=== PATIENT | male | born 1990 | race Caucasian/White ===

== ENCOUNTER 2024-01-08 21:13 | Observation (INO) | payer OTHER, MEDICAID, SELFPAY ==
--- NOTE | ~2024-01-08 | US_ITS ---
EXAMINATION: US scrotum doppler DATE: 01/08/2024 22:00 INDICATION: Right-sided testicular pain and swelling TECHNIQUE: Testicular sonogram utilizing grayscale and Doppler COMPARISON: None. FINDINGS: The right testis measures 4.8 x 3.2 x 2.6 cm. The left testis measures 5.3 x 2.7 x 2.6 cm. Symmetric normal grayscale appearance to both testes. There is marked hyperemia of the right testis and epididy mis consistent with epididymal orchitis. There is a moderate-sized complex right hydrocele with locul ated components considering the level internal echoes and interspersed with multiple thin internal se ptations. The left epididymis is normal with normal vascular flow. There is a small anechoic simple a ppearing left hydrocele. There is no varicocele. Asymmetric right-sided scrotal edema. IMPRESSION: 1. Right epididymoorchitis with moderate-sized complex right hydrocele, potentially pyocele. Reviewed, dictated and finalized at location A. IMPRESSION: 1. Right epididymoorchitis with moderate-sized complex right hydrocele, potent ially pyocele.
[2024-01-08 21:58] VITALS: BP 155/77; PULSE 88; RESP 16; TEMP 36.8; O2SAT 100
[2024-01-09] VITALS (13 sets, daily range): BP systolic 120–138; BP diastolic 64–89; PULSE 75–90; RESP 14–20; TEMP 36.4–36.9; O2SAT 94–99; BMI 30.9
[2024-01-09 03:53] LABS: Basophils Percent Auto 0.3 % (0.2-1.2); Eosinophils Absolute Auto 0.2 K/mm3 (0-0.3); Eosinophils Percent Auto 1.8 % (0-4.4); Hematocrit 38.8 % (42.0-52.0); Immature Granulocyte Absolute 0.11 K/mm3 (0.00-0.031); Lymphocytes Absolute Auto 1.97 K/mm3 (0.9-3.2); Lymphocytes Percent Auto 18.6 % (18.3-44.2); Mean Corpuscular HGB Conc 33.5 g/dl (32-36); Mean Corpuscular Hemoglobin 30.5 pg (26-34); Mean Corpuscular Volume 91.1 fl (80-100); Mean Platelet Volume 9.7 fl (7.4-10.4); Monocytes Absolute Auto 0.9 K/mm3 (0.1-0.6); Monocytes Percent Auto 8.6 % (2.6-8.5); Neutrophils Absolute Auto 7.4 K/mm3 (1.3-6.7); Neutrophils Percent Auto 69.7 % (45.5-73.1); Platelet Count Result 234 k/mm3 (150-375); Red Blood Count 4.26 M/mm3 (4.6-6.20); Red Cell Distribution Width 11.9 % (11.5-14.5); White Blood Count 10.6 K/mm3 (4.5-10.0)
[2024-01-09 04:11] LABS: Alanine Aminotransferase 11 U/L (6-50); Albumin Level 4.4 g/dL (3.5-5.1); Alkaline Phosphatase 47 U/L (38-126); Anion Gap 10 mmol/L (4-12); Aspartate Amino Transferase 16 U/L (17-59); Bilirubin,Total 0.5 mg/dL (0.2-1.3); Blood Urea Nitrogen 15 mg/dL (9-20); Calcium 9.2 mg/dL (8.4-10.2); Carbon Dioxide 27 mmol/L (22-30); Chloride 103 mmol/L (98-107); Estimated CRCL calculation 121 ml/min; Estimated Glomerular Filt Rate > 60; Glucose 97 mg/dL (65-110); Potassium 3.5 mmol/L (3.4-5.0); Sodium 140 mmol/L (137-145)
--- NOTE | 2024-01-09 04:31 | ED.GENADULT ---
HPI - General Adult General Chief complaint: Urogenital-Male Stated complaint: testicular pain Time Seen by Provider: 01/09/24 03:16 History of Present Illness HPI narrative: Patient 33-year-old gentleman who presents emergency department with chief complaint of right testicle pain. Patient reports that he was seen at [facility] on Thursday diagnosed with epididymitis given a shot of Rocephin and sent home on doxycycline patient has been in senior care taking his antibiotics and reports that the testicle is become more swollen and more tender the was brought into the emergency department today to evaluate for torsion and additional treatment. Related Data Allergies Allergy/AdvReac Type Severity Reaction Status Date / Time No Known Allergies Allergy Verified 01/09/24 03:51 Review of Systems Review of Systems: A 10 system review of systems was completed on the patient and is negative except for what is stated in the HPI. Nursing and ancillary documentation was reviewed. Exam Narrative: GENERAL: Well-appearing, well-nourished, and in no acute distress. HEAD: Normocephalic, atraumatic. EYES: PERRLA and EOMI. ENT: Nares clear, no rhinorrhea or epistaxis. Mucous membranes moist. NECK: Supple. CHEST: Clear to auscultation. No respiratory distress. HEART: Regular rate and rhythm. No murmur heard. Normal peripheral pulses. ABDOMEN: Soft, nontender, nondistended, normal active bowel sounds. : Right testicle is significantly swollen about the size of a baseball. EXTREMITIES: Normal range of motion. No edema. SKIN: Warm, dry, no rash. NEURO: No focal deficits. Alert and oriented x3. PSYCH: Normal mood and affect. Course Vital Signs Vital signs: Vital Signs Temperature 36.8 C 01/08/24 21:58 Pulse Rate 88 01/08/24 21:58 Respiratory Rate 16 01/08/24 21:58 Blood Pressure 155/77 H 01/08/24 21:58 Pulse Oximetry 100 01/08/24 21:58 Oxygen Delivery Room Air 01/08/24 21:58 Temperature 36.9 C 01/09/24 03:52 Pulse Rate 79 01/09/24 03:52 Respiratory Rate 17 01/09/24 03:52 Blood Pressure 136/85 01/09/24 03:52 Pulse Oximetry 97 01/09/24 03:52 Oxygen Delivery Room Air 01/08/24 21:58 Medical Decision Making [facility] Narrative Medical decision making narrative: differential diagnosis includes torsion, epididymal orchitis, hydrocele, scrotal abscess, Bolivar's gangrene the patient did not have signs of crepitance no necrotic tissue present scrotal ultrasound showed The right testis measures 4.8 x 3.2 x 2.6 cm. The left testis measures 5.3 x 2.7 x 2.6 cm. Symmetric normal grayscale appearance to both testes. There is marked hyperemia of the right testis and epididymis consistent with epididymal orchitis. There is a moderate-sized complex right hydrocele with loculated components considering the level internal echoes and interspersed with multiple thin internal septations. The left epididymis is normal with normal vascular flow. There is a small anechoic simple appearing left hydrocele. There is no varicocele. Asymmetric right-sided scrotal edema. IMPRESSION: 1. Right epididymoorchitis with moderate-sized complex right hydrocele, potentially pyocele. CBC showed white count of 10.6 electrolytes are within normal limits urinalysis is currently pending the case was discussed with Urology the patient was given Rocephin was started on Levaquin patient will be admitted for further care Vital Signs Vital Signs: Vital Signs Temperature 36.8 C 01/08/24 21:58 Pulse Rate 88 01/08/24 21:58 Respiratory Rate 16 01/08/24 21:58 Blood Pressure 155/77 H 01/08/24 21:58 Pulse Oximetry 100 01/08/24 21:58 Oxygen Delivery Room Air 01/08/24 21:58 Temperature 36.9 C 01/09/24 03:52 Pulse Rate 79 01/09/24 03:52 Respiratory Rate 17 01/09/24 03:52 Blood Pressure 136/85 01/09/24 03:52 Pulse Oximetry 97 01/09/24 03:52 Oxygen Delivery Room Air 01/08/24 21:
[2024-01-09] MEDS: levoFLOXacin 750 MG/D5W 150 ML 750 MG/150 ML BAG 100 MG IVPB (04:35)
[2024-01-09] MEDS: HYDROcodone/acetaminophen (*CRX) 5-325 MG TABLET 1 TAB PO ×2 (05:04→10:45)
[2024-01-09] MEDS: ACETAMINOPHEN 325 MG TABLET 650 MG PO (06:31)
--- NOTE | 2024-01-09 06:33 | ADMGEN ---
This patient, Bethel Plzaa, was admitted to Medical Room 253-01. Patient/family oriented to hospital policies and general routines including ID bracelet, bed and alarms, visiting hours, pain management, procedures, bathroom and other care routines, personal items, smoking policy, room service/diet, and visiting hours. Information on how to activate the Rapid Response Team has been discussed. Patient/Family are encouraged to report perceived risks to care and to ask questions if they do not understand what they are told or what they should do.
--- NOTE | 2024-01-09 08:36 | WPDURCON ---
Assessment and Plan Assessment and plan (1) Acute epididymo-orchitis: Code(s): N45.3 - Epididymo-orchitis Status: Acute Assessment and Plan: This appears to be a fairly typical presentation for epididymitis. I would anticipate IV antibiotics for 36-48 hours followed by outpatient oral therapy for 10-14 days. Discharge once we see improvement in leukocytosis. I have explained to patient that typically the will take 3-4 weeks for the scrotal swelling and induration to completely resolved. Urology Consult Note HPI Date Seen: 01/09/24 Requesting Physician: Shanthi Degroot DO Primary Care Provider: UNKNOWN,DOCTOR Consult Narrative Narrative: Bethel Plaza is a 33 year old male without prior significant urological history who is admitted following a 5 day course of progressive right hemiscrotal swelling, induration and tenderness. This occurred without identifiable precipitating injury or strain. He was seen in the emergency department in [place] where he was diagnosed with epididymitis. There was no significant improvement prompting re-evaluation in the ED at [facility] with subsequent admission. Other than scrotal discomfort and swelling he denies Uribel voiding, fevers or other constitutional symptoms Review of Systems Review of Systems: All systems reviewed & are unremarkable except as noted in HPI and below PMFSH Social History Social History Smoking status: Current every day smoker Tobacco type: cigarettes Alcohol intake: never Substance use: never Do You Feel Safe in your Home?: Yes Lack of Transportation: No Lack of Food: Never True Current Housing: I Have Housing Concerned About Future Housing: No Difficulty Paying Gas/Electric Bills: No Difficulty Paying for Meds: No Currently Unemployed: No Education: High School Diploma/GED Difficulty w/ Childcare or Family Care: No Spiritual care concerns: No Meds Home Medications and Allergies Home Medications Medication Instructions Recorded Confirmed Type acetaminophen 500 mg tablet 500 mg PO BID 01/09/24 01/09/24 History doxycycline hyclate 100 mg capsule 100 mg PO BID 01/09/24 01/09/24 History Allergies Allergy/AdvReac Type Severity Reaction Status Date / Time No Known Allergies Allergy Verified 01/09/24 03:51 Vital Signs Vital Signs - 24 hr 01/08/24 21:58 01/09/24 03:52 01/09/24 03:52 Temperature 98.3 F 98.4 F Pulse Rate 88 79 Respiratory Rate 16 17 Blood Pressure 155/77 H 136/85 136/85 Pulse Oximetry 100 97 98 Oxygen Delivery Room Air 01/09/24 03:53 01/09/24 04:00 01/09/24 04:02 Temperature Pulse Rate Respiratory Rate Blood Pressure 135/87 Pulse Oximetry 98 97 96 Oxygen Delivery 01/09/24 04:15 01/09/24 04:17 01/09/24 04:30 Temperature Pulse Rate Respiratory Rate Blood Pressure 128/84 Pulse Oximetry 98 97 99 Oxygen Delivery 01/09/24 04:31 01/09/24 05:23 01/09/24 06:01 Temperature Pulse Rate 76 79 Respiratory Rate 17 20 Blood Pressure 130/82 138/89 Pulse Oximetry 98 99 97 Oxygen Delivery 01/09/24 06:09 Temperature 98.0 F Pulse Rate 90 Respiratory Rate 18 Blood Pressure 134/74 Pulse Oximetry 94 Oxygen Delivery Exam Const: General: no acute distress Resp: Effort & Inspection: normal respiratory effort GI: Inspection: non-distended GI Palp: No abdominal tenderness and No Guarding due to palpation present (GI) Auscultation: normal bowel sounds : Scrotum: other (moderate induration right hemiscrotum - testicle not palpable) Results Labs 01/09/24 03:47 01/09/24 03:47 Labs: Short CBC 01/09/24 Range/Units 03:47 WBC 10.6 H (4.5-10.0) K/mm3 Hgb 13.0 L (14.0-18.0) g/dL Hct 38.8 L (42.0-52.0) % Plt Count 234 (150-375) k/mm3 BMP 01/09/24 03:47 Sodium 140 Potassium 3.5
[2024-01-09 08:42] LABS: Add Urine Microscopic? YES; Appearance Urine Turbid (Clear); Bacteria Urine None Seen /hpf; Bilirubin Urine Negative (Negative); Blood Urine Negative (Negative); Color Urine Yellow (Yellow); Glucose Urine UA Negative (Negative); Ketones Urine Trace mg/dL (Negative); Leukocyte Esterase Ur Negative LEU/UL (Negative); Mucus Urine Present /lpf; Nitrate Urine Negative (Negative); Protein Urine Trace mg/dL (Negative); RBC Urine 0-2 /hpf (0-2); Specific Grav Ur 1.029 (1.001-1.035); Squamous Epithelial Cell Urine Occasional /hpf (Few); Urobilinogen Urine 0.2 mg/dL (<2.0); pH Urine 5.5 (5.0-9.0)
[2024-01-09 11:16] LABS: Chlamydia trachomatis NOT DETECTED (NOT DETECTE); Neisseria gonorrhoeae PCR NOT DETECTED (NOT DETECTE)
--- NOTE | 2024-01-09 17:36 | PM.IMHP ---
H&P: HPI History of Present Illness Date/Time: 01/09/24 17:36 Chief Complaint: Right scrotal pain Narrative: Patient was brought in to the ER from [facility] with reports of right scrotal pain within the last4-5 days prior to his presentation. Pt reports that he went to OSH 3 days ago and was given a shot of Ceftriaxone and discharged on doxycycline. Pt has been taking the antibiotics with no improvement in symptoms so he decided to come to this ER. He reports a similar episode some months ago that resolved with IV and PO antibiotics. Pt denies fevers, chills, hematuria, abdominal pain, nausea, vomiting, SOB. Review of Systems Review of Systems: All systems reviewed & are unremarkable except as noted in HPI and below PMFSH Social History Social History Smoking status: Current every day smoker Tobacco type: cigarettes Alcohol intake: never Substance use: never Do You Feel Safe in your Home?: Yes Lack of Transportation: No Lack of Food: Never True Current Housing: I Have Housing Concerned About Future Housing: No Difficulty Paying Gas/Electric Bills: No Difficulty Paying for Meds: No Currently Unemployed: No Education: High School Diploma/GED Difficulty w/ Childcare or Family Care: No Spiritual care concerns: No Meds Home Medications and Allergies Home Medications Medication Instructions Recorded Confirmed Type acetaminophen 500 mg tablet 500 mg PO BID 01/09/24 01/09/24 History doxycycline hyclate 100 mg capsule 100 mg PO BID 01/09/24 01/09/24 History Allergies Allergy/AdvReac Type Severity Reaction Status Date / Time No Known Allergies Allergy Verified 01/09/24 03:51 Vital Signs Vital Signs - 24 hr 01/08/24 21:58 01/09/24 03:52 01/09/24 03:52 Temperature 98.3 F 98.4 F Pulse Rate 88 79 Respiratory Rate 16 17 Blood Pressure 155/77 H 136/85 136/85 Pulse Oximetry 100 97 98 Oxygen Delivery Room Air 01/09/24 03:53 01/09/24 04:00 01/09/24 04:02 Temperature Pulse Rate Respiratory Rate Blood Pressure 135/87 Pulse Oximetry 98 97 96 Oxygen Delivery 01/09/24 04:15 01/09/24 04:17 01/09/24 04:30 Temperature Pulse Rate Respiratory Rate Blood Pressure 128/84 Pulse Oximetry 98 97 99 Oxygen Delivery 01/09/24 04:31 01/09/24 05:23 01/09/24 06:01 Temperature Pulse Rate 76 79 Respiratory Rate 17 20 Blood Pressure 130/82 138/89 Pulse Oximetry 98 99 97 Oxygen Delivery 01/09/24 06:09 01/09/24 08:00 01/09/24 14:00 Temperature 98.0 F 97.6 F Pulse Rate 90 75 Respiratory Rate 18 16 Blood Pressure 134/74 120/74 Pulse Oximetry 94 98 Oxygen Delivery Room Air Exam Const: General: comfortable and no acute distress HENMT: Face/Nose/Sinus: Normal nares present Mouth: Yes moist mucous membranes Other: Atraumatic Eyes: General: appearance normal, both eyes and all related structures Sclera: sclerae normal Pupils: Equal, round and reactive pupils present EOM: EOMs intact bilaterally Neck: Neck: supple Resp: Effort & Inspection: normal respiratory effort Auscultation: clear to auscultation bilaterally Cardio: Rate: regular rate Rhythm: regular rhythm Other: S1S2 GI: GI Palp: Yes Soft to palpation Auscultation: normal bowel sounds Other: Non-tender : Male General Exam: Yes erythema and Yes tenderness Other: Right scrotum Skin: General skin exam: normal color and erythema Wounds: no wounds Other: Right scrotal redness Neuro: Speech: normal speech Motor exam (neuro): 5/5 motor strength present throughout Sensory Exam: normal sensation Other: Calm and co-operative Extrem: General: normal to inspection Psych: Mental Status: mental status grossly normal Affect: normal affect Other: Calm and co-operative H&P: Results Labs Labs: Short CBC 01/09/24 Range/Units 03:47 WBC 10.6 H (4.5-1
[2024-01-10] MEDS: levoFLOXacin 750 MG/D5W 150 ML 750 MG/150 ML BAG 100 MG IVPB (05:30)
[2024-01-10 05:41] VITALS: BP 121/70; PULSE 74; RESP 18; TEMP 36.6; O2SAT 97
--- NOTE | 2024-01-10 08:29 | WPDUROPN2 ---
Progress Note: A&P Assessment and Plan (1) Acute epididymo-orchitis: Code(s): N45.3 - Epididymo-orchitis Status: Acute Assessment and Plan: Agree with levaquin, as pain improves can transition to oral antibiotics and prepare for discharge. NSAIDS and scrotal support/elevation for symptom control. Subjective Subjective Date/Time Seen: 01/10/24 08:29 Interval history: NAEO, patient reports persistent discomfort and swelling. No fevers. Exam Narrative: NAD, A&Ox3, resting in bed, appears comfortable. RRR eWOB S/NT/ND Scrotum with minor erythema, right testicle enlarged and tender to palpation. Left testicle non-tender. Neuro nonfocal Appropriate affect and mood. Objective Data Vital Signs Vital Signs: Vital Signs - 24 hr 01/09/24 14:00 01/09/24 21:12 01/10/24 05:41 Temperature 97.6 F 97.8 F 97.8 F Pulse Rate 75 76 74 Respiratory Rate 16 14 18 Blood Pressure 120/74 120/64 121/70 Pulse Oximetry 98 98 97 Intake/Output Intake/Output: Intake & Output 01/07/24 01/08/24 01/09/24 01/10/24 23:59 23:59 23:59 23:59 Intake Total 1410 450 Balance 1410 450 Meds/Results Medications: Active Medications Generic Name Dose Route Start Last Admin Trade Name Freq PRN Reason Stop Dose Admin Acetaminophen 650 mg 01/09/24 04:57 01/09/24 06:31 Acetaminophen 325 Mg Tablet PO 650 mg Q4H PRN Administration Mild Pain (1-3) or Fever Hydrocodone Bitart/Acetaminophen 1 tab 01/09/24 04:57 01/10/24 00:00 Hydrocodone/Acetaminophen (*Crx) 5-325 Mg Tablet PO 1 tab Q4H PRN Administration Pain Rated 4-6 Enoxaparin Sodium 40 mg 01/10/24 09:00 Enoxaparin 40 Mg/0.4 Ml Syringe SUB-Q DAILY LEXI Levofloxacin/Dextrose 750 mg in 150 mls @ 100 mls/hr 01/10/24 05:00 01/10/24 07:00 Levaquin 750 Mg/D5w 150 Ml IVPB Infused Q24H LEXI Infusion Radiology Results: ITS Impressions Scrotum Ultrasound 01/08/24 22:02 IMPRESSION: 1. Right epididymoorchitis with moderate-sized complex right hydrocele, potentially pyocele. Labs Labs: Laboratory Results - last 24 hr 01/09/24 08:12 Urine Color Yellow Urine Appearance Turbid H Urine pH 5.5 Ur Specific [place] 1.029 Urine Protein Trace Urine Glucose (UA) Negative Urine Ketones Trace H Ur Blood (Man) Negative Urine Nitrate Negative Urine Bilirubin Negative Urine Urobilinogen 0.2 Leukocyte Esterase Rfl Negative Urine RBC 0-2 Urine WBC 6-10 H Ur Squamous Epith Cells Occasional Urine Bacteria None seen Urine Casts 11-20 Urine Mucus Present C. trachomatis (PCR) Not detected N. gonorrhoeae (PCR) Not detected
[2024-01-10 09:00] LABS: Basophils Percent Auto 0.5 % (0.2-1.2); Eosinophils Absolute Auto 0.2 K/mm3 (0-0.3); Eosinophils Percent Auto 2.3 % (0-4.4); Hematocrit 40.4 % (42.0-52.0); Hemoglobin 13.3 g/dL (14.0-18.0); Immature Granulocyte Absolute 0.14 K/mm3 (0.00-0.031); Immature Granulocyte Percent A 1.6 % (0-0.5); Lymphocytes Absolute Auto 1.78 K/mm3 (0.9-3.2); Lymphocytes Percent Auto 20.7 % (18.3-44.2); Mean Corpuscular HGB Conc 32.9 g/dl (32-36); Mean Corpuscular Hemoglobin 30.4 pg (26-34); Mean Corpuscular Volume 92.2 fl (80-100); Mean Platelet Volume 9.4 fl (7.4-10.4); Monocytes Absolute Auto 0.5 K/mm3 (0.1-0.6); Monocytes Percent Auto 6.1 % (2.6-8.5); Neutrophils Absolute Auto 5.9 K/mm3 (1.3-6.7); Neutrophils Percent Auto 68.8 % (45.5-73.1); Platelet Count Result 250 k/mm3 (150-375); Red Blood Count 4.38 M/mm3 (4.6-6.20); Red Cell Distribution Width 11.6 % (11.5-14.5); White Blood Count 8.6 K/mm3 (4.5-10.0)
[2024-01-10] MEDS: ENOXAPARIN 40 MG/0.4 ML SYRINGE SUB-Q (09:47)
--- NOTE | 2024-01-10 11:33 | PM.IMPN ---
Progress Note: A&P Assessment and Plan (1) Acute epididymo-orchitis: Code(s): N45.3 - Epididymo-orchitis Status: Acute Assessment and Plan: - Continue IV Levaquin as we await cultures. - Gonorrhea/Chlamydia PCR negative. - Mumps pending. - Pain meds PRN. - Elevate testictles PRN for comfort. - Consider PO abx in AM if cultures result. (2) Leukocytosis: Code(s): D72.829 - Elevated white blood cell count, unspecified Status: Acute Assessment and Plan: - Likely related to infection. - Resolved. (3) Tobacco use disorder: Code(s): F17.200 - Nicotine dependence, unspecified, uncomplicated Status: Chronic Assessment and Plan: - Encouraged with cessation. - Declines nicotine patch. Plan Code: Full-Code. DVT PPx: Lovenox. Time Spent With Patient Time with patient: 15 - 25 minutes Subjective Date/time seen: 01/10/24 11:33 Interval history: Patient presented to the ER with Right scrotal pain. Denied any trauma and reported previous episode that was treated with IV and PO abx. Pt currently calm on bedrest and reports improvement in pain but states had some whitish discharge when urinating early in AM. Denies headache, dizziness, trouble swallowing, chest pain, SOB, hematuria, dysuria, joint or muscle aches. Review of Systems Review of Systems: All systems reviewed & are unremarkable except as noted in HPI and below Exam Const: General: comfortable and no acute distress HENMT: Face/Nose/Sinus: Normal nares present Mouth: Yes moist mucous membranes Other: Atraumatic Eyes: General: appearance normal, both eyes and all related structures Sclera: sclerae normal Pupils: Equal, round and reactive pupils present EOM: EOMs intact bilaterally Neck: Neck: supple Resp: Effort & Inspection: normal respiratory effort Auscultation: clear to auscultation bilaterally Cardio: Rate: regular rate Rhythm: regular rhythm Other: S1S2 GI: Auscultation: normal bowel sounds Other: Non-tender : Male General Exam: Yes erythema and Yes tenderness Other: Right scrotum Skin: General skin exam: normal color and erythema Wounds: no wounds Other: Right scrotal redness Neuro: Cranial nerves: Yes Equal, round and reactive pupils present Speech: normal speech Motor exam (neuro): 5/5 motor strength present throughout Sensory Exam: normal sensation Other: Calm and co-operative Extrem: General: normal to inspection Psych: Mental Status: mental status grossly normal Affect: normal affect Other: Calm and co-operative Objective Data Vital Signs Vital Signs: Vital Signs - 24 hr 01/09/24 14:00 01/09/24 21:12 01/10/24 05:41 Temperature 97.6 F 97.8 F 97.8 F Pulse Rate 75 76 74 Respiratory Rate 16 14 18 Blood Pressure 120/74 120/64 121/70 Pulse Oximetry 98 98 97 Intake/Output Intake/Output: Intake & Output 01/07/24 01/08/24 01/09/24 01/10/24 23:59 23:59 23:59 23:59 Intake Total 1410 810 Balance 1410 810 Meds/Results Medications: Active Medications Generic Name Dose Route Start Last Admin Trade Name Freq PRN Reason Stop Dose Admin Acetaminophen 650 mg 01/09/24 04:57 01/09/24 06:31 Acetaminophen 325 Mg Tablet PO 650 mg Q4H PRN Administration Mild Pain (1-3) or Fever Hydrocodone Bitart/Acetaminophen 1 tab 01/09/24 04:57 01/10/24 00:00 Hydrocodone/Acetaminophen (*Crx) 5-325 Mg Tablet PO 1 tab Q4H PRN Administration Pain Rated 4-6 Enoxaparin Sodium 40 mg 01/10/24 09:00 01/10/24 09:47 Enoxaparin 40 Mg/0.4 Ml Syringe SUB-Q 40 mg DAILY LEXI Administration Levofloxacin/Dextrose 750 mg in 150 mls @ 100 mls/hr 01/10/24 05:00 01/10/24 07:00 Levaquin 750 Mg/D5w 150 Ml IVPB Infused Q24H LEXI Infusion Radiology Results: ITS Impressions Scrotum Ultrasound 01/08/24 22:02 IMPRESSION: 1. Right epididymoorchitis with moderate-sized complex right hydroce
[2024-01-10 11:58] VITALS: O2SAT 100
[2024-01-10 13:56] VITALS: BP 124/62; PULSE 82; RESP 18; TEMP 37.7; O2SAT 97
[2024-01-10 14:37] VITALS: TEMP 37.1
[2024-01-10] MEDS: HYDROcodone/acetaminophen (*CRX) 5-325 MG TABLET 1 TAB PO ×2 (18:19)
[2024-01-10 20:44] VITALS: BP 121/63; PULSE 73; RESP 16; TEMP 36.5; O2SAT 97
[2024-01-11] MEDS: HYDROcodone/acetaminophen (*CRX) 5-325 MG TABLET 1 TAB PO (00:47)
[2024-01-11] MEDS: levoFLOXacin 750 MG/D5W 150 ML 750 MG/150 ML BAG 100 MG IVPB (05:00)
[2024-01-11 06:00] VITALS: BP 122/68; PULSE 72; RESP 18; TEMP 36.6; O2SAT 99
--- NOTE | 2024-01-11 09:09 | WPDUROPN2 ---
Progress Note: A&P Assessment and Plan (1) Acute epididymo-orchitis: Code(s): N45.3 - Epididymo-orchitis Status: Acute Assessment and Plan: Greatly improved. WBC normalized. Remains afebrile. Transition to p.o. Levaquin to complete a 14 day course. Okay for discharge from urologic standpoint at this time. Continue supportive care, scrotal support/elevation for symptom relief Subjective Subjective Date/Time Seen: 01/11/24 09:09 Interval history: Feeling improved today. Pain is well controlled. Reports swelling and redness have improved. Denies fever, chills, nausea, vomiting. Review of Systems Review of Systems: All systems reviewed & are unremarkable except as noted in HPI and below Exam Narrative: General: Awake, alert, comfortable, no acute distress HEENT: Normocephalic, atraumatic, sclerae anicteric Respiratory: Normal respiratory effort, no accessory muscle use Abdomen: Nondistended, soft, nontender : Right testicle is enlarged, minimally tender to palpation, very mild erythema of scrotum Skin: Normal coloration, warm and dry Neurologic: No focal neuro deficits noted Psychiatric: Appropriate mood and affect, judgment and insight intact Objective Data Vital Signs Vital Signs: Vital Signs - 24 hr 01/10/24 11:58 01/10/24 13:56 01/10/24 14:37 Temperature 99.8 F H 98.7 F Pulse Rate 82 Respiratory Rate 18 Blood Pressure 124/62 Pulse Oximetry 100 97 Oxygen Delivery Room Air 01/10/24 20:00 01/10/24 20:44 01/11/24 06:00 Temperature 97.7 F 97.8 F Pulse Rate 73 72 Respiratory Rate 16 18 Blood Pressure 121/63 122/68 Pulse Oximetry 97 99 Oxygen Delivery Room Air Intake/Output Intake/Output: Intake & Output 01/08/24 01/09/24 01/10/24 01/11/24 23:59 23:59 23:59 23:59 Intake Total 1410 1290 550 Balance 1410 1290 550 Meds/Results Medications: Active Medications Generic Name Dose Route Start Last Admin Trade Name Freq PRN Reason Stop Dose Admin Acetaminophen 650 mg 01/09/24 04:57 01/09/24 06:31 Acetaminophen 325 Mg Tablet PO 650 mg Q4H PRN Administration Mild Pain (1-3) or Fever Hydrocodone Bitart/Acetaminophen 1 tab 01/09/24 04:57 01/11/24 00:47 Hydrocodone/Acetaminophen (*Crx) 5-325 Mg Tablet PO 1 tab Q4H PRN Administration Pain Rated 4-6 Enoxaparin Sodium 40 mg 01/10/24 09:00 01/10/24 09:47 Enoxaparin 40 Mg/0.4 Ml Syringe SUB-Q 40 mg DAILY LEXI Administration Levofloxacin/Dextrose 750 mg in 150 mls @ 100 mls/hr 01/10/24 05:00 01/11/24 06:30 Levaquin 750 Mg/D5w 150 Ml IVPB Infused Q24H LEXI Infusion Radiology Results: ITS Impressions Scrotum Ultrasound 01/08/24 22:02 IMPRESSION: 1. Right epididymoorchitis with moderate-sized complex right hydrocele, potentially pyocele. Labs Labs: Laboratory Results - last 24 hr 01/10/24 08:46 WBC 8.6 RBC 4.38 L Hgb 13.3 L Hct 40.4 L MCV 92.2 MCH 30.4 MCHC 32.9 RDW 11.6 Plt Count 250 MPV 9.4 Immature Gran % (Auto) 1.6 H Neut % (Auto) 68.8 Lymph % (Auto) 20.7 [place] % (Auto) 6.1 Eos % (Auto) 2.3 Baso % (Auto) 0.5 Lymph # (Auto) 1.78 [place] # (Auto) 0.5 Eos # (Auto) 0.2 Baso # (Auto) 0.0 Abs Immat Gran (auto) 0.14 H Absolute Neuts (auto) 5.9 Absolute Nucleated RBC 0.000 Nucleated RBC % 0.0
[2024-01-11] MEDS: ENOXAPARIN 40 MG/0.4 ML SYRINGE SUB-Q (09:16)
--- NOTE | 2024-01-11 10:29 | PM.DS ---
DS: Admitting Diagnosis Discharge Date 01/14/2004 Admitting Diagnosis Scrotal redness, pain and swelling. DS: Discharge Diagnosis Discharge Diagnosis (1) Acute epididymo-orchitis: Code(s): N45.3 - Epididymo-orchitis Status: Acute Assessment and Plan: - Well improving. Remains afebrile. - Transitioned to p.o. Levaquin to complete a 14 day course. - Cleared for discharge per urologist. - Continue supportive care, scrotal support/elevation for symptom relief. - Pain meds PRN. (2) Leukocytosis: Code(s): D72.829 - Elevated white blood cell count, unspecified Status: Acute Assessment and Plan: - Related to infection. - Resolved. (3) Tobacco use disorder: Code(s): F17.200 - Nicotine dependence, unspecified, uncomplicated Status: Chronic Assessment and Plan: - 7 minutes spent on cessation counseling. - Declined nicotine patch. Plan Patient stable for discharge with symptoms improving and no acute symptoms noted. Scrotal redness and swelling improving. Encouraged with scrotal support/elevation for symptom relief. DS: Summary Hospital Course Reason for hospitalization: Epididymo-Orchitis. Hospital Course: Patient presented to the emergency room reporting that he was seen at [facility] a couple of days prior to this presentation and was diagnosed with epididymitis. He was given a shot of Rocephin and sent home on PO doxycycline which he has been taking his but the testicle was becoming more swollen and more tender. Patient was brought to the emergency department for evaluation of possible torsion and further treatment. Patient has an US scrotum done that showed: Right epididymoorchitis with moderate-sized complex right hydrocele, potentially pyocele. Patient has been treated by IV Levaquin that has been converted to PO before discharge for a 14 day course per urologist, who followed up with the patient during his admission. Preliminary blood and urine cultures are all negative, with the patient's leukocytosis resolving prior t his discharge. Pt remains afebrile and reports only minimal discomfort. Pt is stable for discharge back to senior care. Time spent discussing smoking cessation with patient: 3 to 10 minutes Status at Discharge Cognitive/behavioral status at discharge: Calm and cooperative. Functional status at discharge: independent ambulation Overall status at discharge: patient is progressing back to baseline Time Spent with Patient Time attestation: Total time spent providing and/or coordinating discharge services: Time spent: Greater than 30 minutes Specific discharge activities: Elevate/support scrotum for comfort. Exam Narrative: General: Awake, alert, comfortable, no acute distress HEENT: Normocephalic, atraumatic, sclerae anicteric Respiratory: Normal respiratory effort, no accessory muscle use Abdomen: Nondistended, soft, nontender : Right testicle is moderately enlarged, minimal tenderness to palpation, very mild erythema of scrotum Skin: Normal coloration, warm and dry Neurologic: No focal neuro deficits noted Psychiatric: Appropriate mood and affect, judgment and insight intact Const: General: comfortable and no acute distress HENMT: Face/Nose/Sinus: Normal nares present Mouth: Yes moist mucous membranes Other: Atraumatic Eyes: General: appearance normal, both eyes and all related structures Sclera: sclerae normal Pupils: Equal, round and reactive pupils present EOM: EOMs intact bilaterally Neck: Neck: supple Resp: Effort & Inspection: normal respiratory effort Auscultation: clear to auscultation bilaterally Cardio: Rate: regular rate Rhythm: regular rhythm Other: S1S2 GI: Auscultation: normal bowel sounds Other: Non-tender : Male General Exam: Yes erythema and Yes tenderness Other: Right scrotum Skin: General skin exam: normal color and erythema Wounds: no wounds Other: Minimal Right scrotal
[2024-01-14 20:33] LABS: Mumps Virus IgM Antibody <1:20 titer
--- NOTE | 2024-01-15 09:06 | PC.NURSE ---
Mumps IgM Ab is WNL at <1:20. Dr. Zully gotti.
== END 2024-01-11 12:28 ==
LOC: ANHED 01-09 04:58 → ANH2MED 01-09 06:04
PROVIDERS: Admitting Provider Internal Medicine; Emergency Provider Emergency Medicine; Visit Provider Nurse Practitioner Adult Health
DX: N45.3 Epididymo-orchitis (principal); N43.3 Hydrocele, unspecified; D72.829 Elevated white blood cell count, unspecified; F17.210 Nicotine dependence, cigarettes, uncomplicated
CPT/HCPCS: 36415; 76870; 80053; 81001; 85025; 86735; 87040; 87086; 87491; 87591; 93976; 96365; 96367; 96372; 99285; A9270; G0378; J0696; J1650; J1956